=== PATIENT | male | born 1980 | race Asian ===

== ENCOUNTER 2020-10-07 00:08 | Emergency (ER) | payer OTHER ==
[~2020-10-07] VITALS: Ht 165.1 cm; Wt 62.0 kg
[2020-10-07 00:46] VITALS: BP 127/85
[2020-10-07] MEDS ORDERED: TRAM50TA94 MT (01:59)
[2020-10-07] MEDS ORDERED: NAPR-681 MT (01:59)
== END 2020-10-07 02:17 | disposition home or self-care (01) ==
LOC: ER 00:08
DX: S13.4XXA Sprain of ligaments of cervical spine, initial encounter (principal); V89.2XXA Person injured in unspecified motor-vehicle accident, traffic, initial encounter; Y93.89 Activity, other specified; Y92.89 Other specified places as the place of occurrence of the external cause; Y99.8 Other external cause status
CPT/HCPCS: 99282